=== PATIENT | male | born 1930 ===

== ENCOUNTER 2017-08-03 17:49 | Emergency (ER) | payer MEDICAID, MEDICARE ==
[2017-08-03 17:58] VITALS: BP 138/68
[2017-08-03] MEDS ORDERED: Acetaminophen TAB* 325 MG PO ONE (19:11)
--- NOTE | 2017-08-03 19:11 | UC ---
Shoulder Pain HPI - HPI Summary HPI Summary: Patient to urgent care today with his daughter. 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 Onset/Duration: Sudden Onset Timing: Constant Location Of Pain: Is Discrete @ - right shoulder Pain Intensity: 8 Pain Scale Used: 0-10 Numeric Aggravating Factor(s): Movement Associated Signs And Symptoms: Positive: Negative Related History: Dominant Hand Right - Allergies/Home Medications Allergies/Adverse Reactions: Allergies Allergy/AdvReac Type Severity Reaction Status Date / Time No Known Allergies Allergy Verified 08/03/17 17:58 PMH/Surg Hx/FS Hx/Imm Hx Previously Healthy: Yes - Surgical History Surgical History: Yes Surgery Procedure, Year, and Place: Cholecystectomy, hemorrhoid surgery x2, cataract surgery both eyes, Sigmoid Colon Perforation, 07/08/12 exploratory laparotomy, lysis of adhesions, abdominal washout, temporary closure; 07/10/12 exploratory laparoscopy with abdominal washout, 07/09/12 insertion R IJ triple lumen CVP - Family History Known Family History: Positive: None - Social History Occupation: Retired Lives: With Family Alcohol Use: None Substance Use Type: None Smoking Status (MU): Former Smoker When Did the Patient Quit Smoking/Using Tobacco: 40 years ago - Immunization History Most Recent Tetanus Shot: unknown Review of Systems Constitutional: Negative Skin: Negative Eyes: Negative ENT: Negative Respiratory: Negative Cardiovascular: Negative Gastrointestinal: Negative Genitourinary: Negative Motor: Decreased ROM - right shoulder Neurovascular: Negative Musculoskeletal: Arthralgia - right shoulder Neurological: Negative Psychological: Negative Is Patient Immunocompromised?: No All Other Systems Reviewed And Are Negative: Yes Physical Exam Triage Information Reviewed: Yes Appearance: Well-Appearing, No Pain Distress, Well-Nourished Vital Signs: Initial Vital Signs Temp 99.2 F 08/03/17 17:54 Pulse 78 08/03/17 17:54 Resp 18 08/03/17 17:54 BP 138/68 08/03/17 17:54 Pulse Ox 98 08/03/17 17:54 Vital Signs Reviewed: Yes Eye Exam: Normal Eyes: Positive: Conjunctiva Clear ENT Exam: Normal ENT: Positive: Normal ENT inspection, Hearing grossly normal. Negative: Nasal congestion, Nasal drainage, Trismus, Muffled voice, Hoarse voice Dental Exam: Normal Neck exam: Normal Respiratory Exam: Normal Respiratory: Positive: Chest non-tender, No respiratory distress, No accessory muscle use Cardiovascular Exam: Normal Cardiovascular: Positive: No Murmur, Pulses Normal, Brisk Capillary Refill Musculoskeletal Exam: Other Musculoskeletal: Positive: Strength Limited @ - right shoulder, ROM Limited @ - right shoulder Neurological Exam: Normal Neurological: Positive: Alert Psychological Exam: Normal Skin Exam: Normal Discharge - Sign-Out/Discharge Documenting (check all that apply): Discharge/Admit/Transfer - Discharge Plan Condition: Stable Disposition: HOME Prescriptions: Tramadol HCl [Ultram] 25 - 50 mg PO Q6H PRN #10 tablet MDD 4 PRN Reason: pain Patient Education Materials: Acetaminophen (By mouth), Rotator Cuff Injury (ED) Referrals: Marvin Cohen MD [Primary Care Provider] - Elle Byrd MD [Medical Doctor] - 3 Days - Billing Disposition and Condition Condition: STABLE Disposition: HOME
--- NOTE | 2017-08-03 19:37 | RAD ---
HISTORY: Right shoulder pain, decreased range of motion COMPARISONS: None VIEWS: 4, Frontal internal rotation, external rotation, outlet, and axillary views of the right shoulder FINDINGS: BONE DENSITY: There is diffuse osteopenia. BONES: There is no displaced fracture. JOINTS: There is mild osteoarthritis of the a.c. and glenohumeral joints. ALIGNMENT: There is no dislocation. SOFT TISSUES: Unremarkable. OTHER FINDINGS: None. IMPRESSION: OSTEOPENIA. MILD OSTEOARTHRITIS. NO ACUTE OSSEOUS INJURY. IF SYMPTOMS PERSIST, RECOMMEND REPEAT IMAGING.
== END 2017-08-03 20:20 | disposition home or self-care (01) ==
LOC: UCEAST 17:49
DX: M25.511 Pain in right shoulder (principal); M85.811 Other specified disorders of bone density and structure, right shoulder; M19.011 Primary osteoarthritis, right shoulder; Z87.891 Personal history of nicotine dependence
CPT/HCPCS: 99213; A9270-GY; G0463

== ENCOUNTER 2017-11-13 21:44 | Emergency (ER) | payer MEDICARE, MEDICAID ==
[2017-11-13] MEDS ORDERED: NS 0.9% 1000 ML* 1,000 ML IV ONE ×2 (22:08→23:25)
[2017-11-13] MEDS ORDERED: Acetaminophen TAB* 325 MG PO ONE (22:08)
[2017-11-13] MEDS ORDERED: Pantoprazole IV* 40 MG IV ONE (22:09)
--- NOTE | 2017-11-13 22:23 | ED ---
HPI Cardiac - HPI Summary HPI Summary: Patient is a 87 y/o M w/ c/o heartburn onsetting two days ago. Fever, chills, and SOB is also noted. He does not speak Jordanian and daughter, who was present in the room, translated. Midsternal chest pain, onsetting yesterday with no radiation, is reported as well. Patient reports intermittent dizziness onsetting yesterday. Dizziness is characterized as feeling as if he will fall soon. Syncopal episode is denied, as is N/V. 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 Daughter reports patient takes Tylenol, Peptobismol and Advil regularly, patient is not on BP medication. While standing and walking in room, patient reports no dizziness but notes some chest pain is still present. On triage, pain is rated 9/10 and nothing is noted to aggravate/alleviate Sx. PSHx of cholecystectomy is noted. Home medications and allergies reviewed. - History of Current Complaint Chief Complaint: EDChestWallPain Stated Complaint: DIZZINESS/HEARTBURN Time Seen by Provider: 11/13/17 21:56 Hx Obtained From: Patient Onset/Duration: Started Days Ago - heartburn, fever, SOB, chills onset one day ago; chest pain, dizziness onset yesterday, Still Present - chest pain, Resolved - does not note dizziness is present in room Timing: Constant - all Sx except dizziness, Intermittent - dizziness Current Severity: Severe - 9/10 Pain Intensity: 9 Pain Scale Used: 0-10 Numeric - 9/10 Chest Pain Location: Mid Sternal Chest Pain Radiates: No Aggravating Factor(s): Nothing Alleviating Factor(s): Nothing Associated Signs and Symptoms: Positive: Chest Pain - mid sternal, Dizziness, Shortness of Breath, Fever, Chills, Other: - NEGATIVE: LOC POSITIVE: heartburn. Negative: Nausea, Vomiting - Allergy/Home Medications Allergies/Adverse Reactions: Allergies Allergy/AdvReac Type Severity Reaction Status Date / Time No Known Allergies Allergy Verified 11/13/17 21:47 PMH/Surg Hx/FS Hx/Imm Hx Endocrine/Hematology History: Denies: Hx Diabetes, Hx Thyroid Disease Cardiovascular History: Reports: Other Cardiovascular Problems/Disorders - Hx HTN Denies: Hx Congestive Heart Failure, Hx Hypertension, Hx Pacemaker/ICD Respiratory History: Denies: Hx Asthma, Hx Chronic Obstructive Pulmonary Disease (COPD) GI History: Reports: Other GI Disorders - pancreatitis Denies: Hx Ulcer History: Denies: Hx Renal Disease, Other Problems/Disorders Sensory History: Reports: Hx Cataracts - Removed, Hx Contacts or Glasses Denies: Hx Hearing Aid, Other Sensory Impairments Opthamlomology History: Reports: Hx Cataracts - Removed, Hx Contacts or Glasses Denies: Other Sensory Impairments Neurological History: Reports: Other Neuro Impairments/Disorders - 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 Psychiatric History: Denies: Hx Panic Disorder - Surgical History Surgery Procedure, Year, and Place: Cholecystectomy, hemorrhoid surgery x2, cataract surgery both eyes, Sigmoid Colon Perforation, 07/08/12 exploratory laparotomy, lysis of adhesions, abdominal washout, temporary closure; 07/10/12 exploratory laparoscopy with abdominal washout, 07/09/12 insertion R IJ triple lumen CVP Hx Anesthesia Reactions: No Infectious Disease History: No Infectious Disease History: Reports: 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 Denies: Hx Clostridium Difficile, Hx Hepatitis, Hx Human Immunodeficiency Virus (HIV), Hx of Known/Suspected MRSA, Hx Shingles, Hx Known/Suspected VRE, Hx Known/Suspected VRSA, History Other Infectious Disease, Traveled Outside the [place] in Last 30 Days - Family History Known Family History: Negative: Blood Disorder - Social History Alcohol Use: None Substance Use Type: Reports: None Smoking Status (MU): Former Smoker Review of Systems Positive: Fever, Chills Positive: Chest Pain, Other - heartburn Positive: Shortness Of Breath Negative: Vomiting, Nausea Neurological: Other - dizziness Negative: Syncope All Other Systems Reviewed And Are Negative: Yes Physical Exam - Summary Physical Exam Summary: VITAL SIGNS: Reviewed. GENERAL: Patient is a well-developed and nourished male who is lying comfortable in the stretcher. Patient is not in any acute respiratory distress. HEAD AND FACE: No signs of trauma. No ecchymosis, hematomas or skull depressions. No sinus tenderness. EYES: PERRLA, EOMI x 2, icteric sclera, no nystagmus. EARS: Hearing grossly intact. Ear canals and tympanic membranes are within normal limits. MOUTH: Oropharynx within normal limits. NECK: Supple, trachea is midline, no adenopathy, no JVD, no carotid bruit, no c- spine tenderness, neck with full ROM. CHEST: Symmetric, no tenderness at palpation LUNGS: Clear to auscultation bilaterally. No wheezing or crackles. CVS: Regular rate and rhythm, S1 and S2 present, no murmurs or gallops appreciated. ABDOMEN: Soft, mild epigastric and right upper quadrant tenderness, No signs of distention. No rebound no guarding, and no masses palpated. Bowel sounds are normal. EXTREMITIES: FROM in all major joints, no edema, no cyanosis or clubbing. NEURO: Alert and oriented x 3. 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 No dizziness while standing and walking. SKIN: Dry and warm Triage Information Reviewed: Yes Vital Signs On Initial Exam: Initial Vitals Temp Pulse Resp BP Pulse Ox 101 F 72 16 109/50 93 11/13/17 21:47 11/13/17 21:47 11/13/17 21:47 11/13/17 21:47 11/13/17 21:47 Vital Signs Reviewed: Yes Diagnostics - Vital Signs Vital Signs Temp Pulse Resp BP Pulse Ox 11/13/17 21:47 101 F 72 16 109/50 93 - Laboratory Result Diagrams: 11/13/17 22:30 11/13/17 22:30 Lab Statement: Any lab studies that have been ordered have been reviewed, and results considered in the medical decision making process. - Radiology CXR Xray Interpretation: No Acute Changes Radiology Interpretation Completed By: ED Physician - no acute processes; pending official report - Ultrasound No standard instances Ultrasound Interpretation: Positive (See Comments) Ultrasound Interpretation Completed By: Radiologist - Common bile duct calculus. Dilated common bile duct. Intrahepatic biliary ductal dilatation. Cholecystectomy This report was reviewed by ED physician. - EKG 2211 Cardiac Rate: NL - rate of 95 BPM EKG Rhythm: Sinus Rhythm EKG Interpretation: Normal axis. Normal interval. No ischemic changes Re-Evaluation - Re-Evaluation First Eval Re-Evaluation Time: 00:19 Comment: Discussed results of labs and tests as well as consults with patient. Patient will be transferred to another facility. Patient is agreeable with plan. Disposition - Course Assessment/Plan: Patient is a 87 y/o M w/ c/o heartburn onsetting two days ago. Fever, chills, and SOB is also noted. He does not speak Jordanian and daughter, who was present in the room, translated. Midsternal chest pain, onsetting yesterday with no radiation, is reported as well. Patient reports intermittent dizziness onsetting yesterday. Dizziness is characterized as feeling as if he will fall soon. Syncopal episode is denied, as is N/V. 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 Daughter reports patient takes Tylenol, Peptobismol and Advil regularly, patient is not on BP medication. While standing and walking in room, patient reports no dizziness but notes some chest pain is still present. On triage, pain is rated 9/10 and nothing is noted to aggravate/alleviate Sx. Patient had no dizziness while standing and walking. No other abnormal findings from PE. During ED course, patient was given fluids, protonix 40 mg IV ED ONCE ONE, Meropenem 1 gm in 50 mls @ 100 mls/hr IV ED ONCE ONE. Tylenol 975 mg PO ED ONCE ONE. Labs showed BNP 75, Globulin 4.3, CRP 132,81, Alkaline Phosphatase 136, ALT 226, AST 135, Total bilirubin 7.9, glucose 105, APTT 37.6, INR 1.13, WBC 12 , Hgb 13.4, Hct 41. EKG and CXR were normal. US gallbladder impressions were as follows: Common bile duct calculus. Dilated common bile duct. Intrahepatic biliary ductal dilatation. Cholecystectomy. Patient's case was discussed with Dr. Vazquez at 0013. He recommends GI consult. 0016 -- Dr. Miller was consulted on patient's case. He recommends transfer to higher care facility. 0019 -- Dr. Summers from [facility] was consulted on patient's case. He agrees to accept patient for transfer to [facility]. Need for transfer of patient was discussed with patient and patient's daughter. They are agreeable with plan. Patient was diagnosed with biliary obstruction and choledocholithiasis - Diagnoses Provider Diagnoses: Biliary obstruction, Choledocholithiasis - Physician Notifications Discussed Care Of Patient With: Manuelito Vazquez Time Discussed With Above Provider: 00:13 Instructed by Provider To: Other - Patient's case was discussed with Dr. Vazquez at 0013. He recommends GI consult. 0016 -- Dr. Miller was consulted on patient' s case. He recommends transfer to higher care facility. 0019 -- Dr. Summers from [facility] was consulted on patient's case. He agrees to accept patient for transfer to [facility]. Discharge - Sign-Out/Discharge Documenting (check all that apply): Patient Departure - transfer - Discharge Plan Condition: Good Disposition: TRANS HIGHER LVL OF CARE FAC Referrals: Marvin Cohen MD [Primary Care Provider] - - Billing Disposition and Condition Condition: GOOD Disposition: Trans Higher Lvl of Care Fac - Attestation Statements Document Initiated by Scribe: Yes Documenting Scribe: Jose M Vazquez Provider For Whom Shaq is Documenting (Include Credential): Giacomo Guthrie MD Scribe Attestation: Jose M Lu, scribed for Giacomo Guthrie MD on 11/14/17 at 0058. Scribe Documentation Reviewed: Yes Provider Attestation: The documentation as recorded by the Jose M parra accurately reflects the service I personally performed and the decisions made by me, Giacomo Guthrie MD
[2017-11-13 22:40] LABS: ABS Basophils 0 10^3/ul (0-0.2); ABS Eosinophils 0 10^3/ul (0-0.6); ABS Lymphocytes 1.1 10^3/ul (1.0-4.8); ABS Monocytes 1.2 10^3/ul (0-0.8); ABS Neutrophils 9.5 10^3/ul (1.5-7.7); ABS Nucleated RBC 0 10^3/ul; Eosinophil % 0.2 % (0-6); Hematocrit 41 % (42-52); Hemoglobin 13.4 g/dl (14.0-18.0); Lymphocyte % 9.5 % (25-47); Mean Corpuscular HGB Conc 33 g/dl (31-36); Mean Corpuscular Hemoglobin 31 pg (27-31); Mean Corpuscular Volume 93 fL (80-94); Mean Platelet Volume 9.5 um3 (7.4-10.4); Nucleated Red Blood Cells % 0; Platelet Count 191 10^3/ul (150-450); Red Blood Count 4.37 10^6/ul (4.00-5.40); Red Cell Distribution Width 13 % (10.5-15)
[2017-11-13 22:54] LABS: EGFR Non-African American 68.6 (>60); INR 1.13 (0.77-1.02)
[2017-11-13] MEDS ORDERED: Meropenem 1 GM PREMIX(*) 1 GM/50 ML BAG IV ONE (23:25)
--- NOTE | 2017-11-14 00:06 | RAD ---
EXAM: US Abdomen Limited, Right Upper Quadrant CLINICAL HISTORY: 87 years old, male; Pain; Abdominal pain; Epigastric; Prior surgery; Surgery date: 1-6 months; Surgery type: Cholecystectomy and some kind of bowel surgery per ; Additional info: Fever TECHNIQUE: Real-time ultrasound of the right upper quadrant with image documentation. COMPARISON: No relevant prior studies available. FINDINGS: Liver: The liver parenchyma shows homogeneous echogenicity. The liver measures 11.1 cm. There is dilatation of the intrahepatic biliary ductal system. There are no hepatic mass lesions or cysts. Gallbladder: The patient is status post cholecystectomy. Common bile duct: The common bile duct has a diameter of approximately 1.7 cm. Common bile duct calculus is present measuring approximately 2 cm. Pancreas: The pancreas is partially obscured by bowel gas but the visualized pancreas is normal. Right kidney: The right kidney measures 10.5 cm. Evaluation is limited secondary to bowel gas. No stones. No hydronephrosis. IMPRESSION: Common bile duct calculus. Dilated common bile duct. Intrahepatic biliary ductal dilatation. Cholecystectomy
[2017-11-14] MEDS ORDERED: NS 0.9% 1000 ML* 1,000 ML IV SCH (01:00)
[2017-11-14 01:33] VITALS: BP 119/69
--- NOTE | 2017-11-14 07:42 | RAD ---
INDICATION: Fever COMPARISON: Similar chest x-ray January 23, 2016 TECHNIQUE: Single AP portable view of the chest was obtained. FINDINGS: Image quality is compromised due to the relative inferiority of a portable chest x-ray. The heart and mediastinum exhibit normal size and contour. There is mild calcification overlying the arch of the aorta. There is persistent elevation of the right hemidiaphragm, similar in appearance to the previous chest x-ray. Otherwise the lungs are grossly clear. There is no evidence of a large pleural effusion. Visualized bones are normal for the patient's age. IMPRESSION: No radiographic evidence for acute cardiopulmonary abnormality on this portable chest x-ray. R0
== END 2017-11-14 01:31 | disposition short-term general hospital (02) ==
LOC: ED 21:44
DX: K83.1 Obstruction of bile duct (principal); K80.50 Calculus of bile duct without cholangitis or cholecystitis without obstruction; R07.9 Chest pain, unspecified; R42 Dizziness and giddiness; R06.02 Shortness of breath; Z87.891 Personal history of nicotine dependence
CPT/HCPCS: 36415; 71045; 76705; 80053; 82150; 83605; 83690; 83880; 84484; 85025; 85610; 85730; 86140; 87040; 93005; 96374; 96375; 99284; A9270-GY; J2185

== ENCOUNTER 2018-08-02 11:21 | Emergency (ER) | payer MEDICAID, MEDICARE, OTHER ==
[2018-08-02 12:26] VITALS: BP 132/64
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
== END 2018-08-02 14:07 | disposition home or self-care (01) ==
LOC: UCEAST 11:21
DX: S60.221A Contusion of right hand, initial encounter (principal); S80.11XA Contusion of right lower leg, initial encounter; R07.81 Pleurodynia; Z87.891 Personal history of nicotine dependence; V89.2XXA Person injured in unspecified motor-vehicle accident, traffic, initial encounter; Y92.9 Unspecified place or not applicable
CPT/HCPCS: 93005; 99212; G0463

== ENCOUNTER 2018-08-08 12:52 | Emergency (ER) | payer MEDICARE, MEDICAID ==
[2018-08-08] MEDS ORDERED: Aspirin 81 mg CHEW TAB* 81 MG TAB.CHEW PO ONE (14:01)
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
[2018-08-08 15:34] LABS: Urine Appearance Clear; Urine Bilirubin Negative (Negative); Urine Blood Negative (Negative); Urine Color Straw; Urine Glucose Negative (Negative); Urine Ketones Negative (Negative); Urine Nitrite Negative (Negative); Urine Protein Negative (Negative); Urine Specific Gravity 1.006 (1.010-1.030); Urine Urobilinogen Negative (Negative)
[2018-08-08 15:37] LABS: ABS Eosinophils 0.8 10^3/ul (0-0.6); ABS Lymphocytes 1.7 10^3/ul (1.0-4.8); ABS Monocytes 0.6 10^3/ul (0-0.8); ABS Neutrophils 3.9 10^3/ul (1.5-7.7); Eosinophil % 11.5 %; Hematocrit 46 % (42-52); Hemoglobin 15.1 g/dL (14.0-18.0); Lymphocyte % 23.7 %; Mean Corpuscular HGB Conc 33 g/dL (31-36); Mean Corpuscular Hemoglobin 31 pg (27-31); Mean Corpuscular Volume 93 fL (80-94); Mean Platelet Volume 9.3 fL (7.4-10.4); Nucleated Red Blood Cells % 0.1; Platelet Count 224 10^3/uL (150-450); Red Blood Count 4.94 10^6 /uL (4.18-5.48); Red Cell Distribution Width 13 % (10.5-15)
[2018-08-08 15:45] LABS: INR 0.93 (0.82-1.09)
[2018-08-08 15:53] LABS: Albumin 4.2 g/dL (3.2-5.2); Albumin/Globulin Ratio 1.1 (1-3); BUN/Creatinine Ratio 21.6 (8-20); Calcium 9.5 mg/dL (8.6-10.3); EGFR African American 99.4 (>60); EGFR Non-African American 82.1 (>60); Globulin 3.9 g/dL (2-4); Magnesium 2.5 mg/dL (1.9-2.7); Potassium 4.9 mmol/L (3.5-5.0); Total Bilirubin 0.5 mg/dL (0.2-1.0); Total Protein 8.1 g/dL (6.4-8.9)
[2018-08-08 15:54] LABS: Troponin I 0.01 ng/mL (<0.04)
[2018-08-08 15:58] LABS: CKMB ng/mL 2.2 ng/mL (0.6-6.3)
[2018-08-08] MEDS ORDERED: Iohexol 300* (CONTRAST) 10 ML SDV IV ONE (16:03)
[2018-08-08 16:39] LABS: TSH (Thyroid Stimulating Horm) 2.03 mcIU/mL (0.34-5.60)
[2018-08-08] MEDS ORDERED: Ketorolac INJ* 30 MG/ML 1 ML VIAL IV PUSH ONE (18:14)
[2018-08-08 19:07] VITALS: BP 133/77
== END 2018-08-08 19:15 | disposition home or self-care (01) ==
LOC: ED 12:52
DX: R07.9 Chest pain, unspecified (principal); Z87.891 Personal history of nicotine dependence; Z79.82 Long term (current) use of aspirin; I10 Essential (primary) hypertension; R06.02 Shortness of breath; J98.01 Acute bronchospasm; J84.10 Pulmonary fibrosis, unspecified
CPT/HCPCS: 36415; 71045; 71260; 74177; 80053; 81003; 82550; 82553; 83605; 83735; 83880; 84443; 84484; 85025; 85379; 85610; 85730; 93005; 96374; 99283; A9270-GY; J1885; Q9967